=== PATIENT | female | born 1945 | race African-American/Black ===

== ENCOUNTER → 2016-07-29 | Outpatient (CLI) | payer MEDICARE, BC, OTHER | LOC: WI 14:03 | DX: Z12.31 Encounter for screening mammogram for malignant neoplasm of breast (principal) | CPT/HCPCS: 77067; G0202 ==

== ENCOUNTER → 2016-09-07 | Outpatient (CLI) | payer MEDICARE, BC, OTHER ==
--- NOTE | 2016-09-07 13:09 | RADIOLOGY REPORT (SQ) ---
EXAM DESCRIPTION: CT CHEST WITHOUT COMPLETED DATE/TIME: 09/07/2016 12:53 pm REASON FOR STUDY: COPD, COUGH J44.9 CHRONIC OBSTRUCTIVE PULMONARY DISEASE, UNSPECIFIED R05 COUGH COMPARISON: CT chest 09/17/2015, 07/16/2014 TECHNIQUE: CT scan performed of the chest without intravenous contrast. Images reviewed with lung, soft tissue and bone windows. Reconstructed coronal and sagittal MPR images reviewed. All images st ored on PACS. All CT scanners at this facility use dose modulation, iterative reconstruction, and/or weight based d osing when appropriate to reduce radiation dose to as low as reasonably achievable (ALARA). [facility]: Dose Right [facility]: CareDose [facility]: Dose Right [facility]: Teradose 4D [facility]: [employer] RADIATION DOSE: 15.12 mGy. LIMITATIONS: No technical limitations. FINDINGS: LUNGS AND PLEURA: Bandlike scarring or atelectasis along the left major fissure, benign in appearance. This is best shown on sagittal image 52 and axial image 48. No acute infiltrates. No pleural effusion. No pneumothorax. No chest CT evidence of interstitial fibrosis. No definite enlarged airspaces. No worrisome pulmona ry nodules. HILAR AND MEDIASTINAL STRUCTURES: No identified masses or abnormal nodes. No obvious aneurysm. HEART AND VASCULAR STRUCTURES: No aneurysm. No pericardial effusion. Calcified aortic valve. Heavy coronary artery calcification. UPPER ABDOMEN: No significant findings. Limited exam. THYROID AND OTHER SOFT TISSUES: No masses. No adenopathy. BONES: No significant finding. HARDWARE: None in the chest. OTHER: No other significant findings. IMPRESSION: NO SIGNIFICANT FINDING ON NON-CONTRASTED CHEST CT. TECHNICAL DOCUMENTATION: JOB ID: [id number] Quality ID # [id number]: Final reports with documentation of one or more dose reduction techniques (e.g., Au tomated exposure control, adjustment of the mA and/or kV according to patient size, use of iterative reconstruction technique) 2010 [employer]- All Rights Reserved
== END ==
LOC: RAD 12:42
PROVIDERS: ATTEND Internal Medicine
DX: J44.9 Chronic obstructive pulmonary disease, unspecified (principal); R05 Cough
CPT/HCPCS: 71250

== ENCOUNTER → 2016-09-08 | Outpatient (CLI) | payer MEDICARE, BC, OTHER ==
[2016-09-11 12:40] LABS: IMMUNOGLOBULIN E 682 IU/mL (0-100)
== END ==
LOC: OD 16:16
PROVIDERS: ATTEND Allergy & Immunology
DX: J31.0 Chronic rhinitis (principal); J45.40 Moderate persistent asthma, uncomplicated
CPT/HCPCS: 36415; 82785

== ENCOUNTER → 2016-11-25 | Outpatient (CLI) | payer MEDICARE, BC, OTHER ==
--- NOTE | 2016-11-25 16:45 | RADIOLOGY REPORT (SQ) ---
EXAM DESCRIPTION: MRI CERVICAL SPINE WITHOUT COMPLETED DATE/TIME: 11/25/2016 3:19 pm REASON FOR STUDY: CERVICAL SPINE M54.12 RADICULOPATHY, CERVICAL REGION COMPARISON: MRI cervical spine 11/22/2014 TECHNIQUE: Sagittal and Axial imaging includes T1, T2, STIR and gradient echo sequences. LIMITATIONS: None. FINDINGS: ALIGNMENT: Reversal of cervical curvature from C3 through C7, with fusion at the C4-5 and C6-7 disc spaces, and slight retrolisthesis of C5 over C6. This is similar compared to 11/22/2014 VERTEBRAE: Intact. BONE MARROW: Normal. No marrow replacement or reactive changes. DISCS: Spontaneous ankylosis across the C4-5 and C6-7 disc spaces. High-grade disc space loss of hei ght at C5-6 with slight retrolisthesis of C5 over C6. Mild disc space loss of height at C7-T1 and T1 -2. HARDWARE: None in the spine. CORD AND BASE OF BRAIN: Normal in size and signal intensity. SOFT TISSUES: No soft tissue masses. C1-C2: No significant spinal stenosis. C2-C3: No significant spinal stenosis or exit foraminal stenosis. C3-C4: No central stenosis. Mild bilateral foraminal narrowing from facet and uncovertebral hypertro phy. C4-C5: Minimal posterior disc bulging. No central stenosis. No significant foraminal narrowing C5-C6: Slight retrolisthesis of C5 over C6 is present with broad diffuse posterior disc bulging and b filippo spurring. This effaces the ventral thecal sac and abuts the ventral cord without cord flattening or abnormal intrinsic cord signal. Mild central canal narrowing. Moderate right, mild left foramin al stenosis from facet and uncovertebral hypertrophy. C6-C7: No significant spinal stenosis or exit foraminal stenosis. C7-T1: No central stenosis. Mild bilateral foraminal narrowing from facet and uncovertebral hypertro phy UPPER THORACIC: Incompletely imaged. No significant spinal stenosis or exit foraminal stenosis. OTHER: No other significant finding. IMPRESSION: Diffuse degenerative changes without high-grade central or foraminal encroachment. TECHNICAL DOCUMENTATION: JOB ID: [id number] [employer]- All Rights Reserved
== END ==
LOC: RAD 14:32
PROVIDERS: ATTEND Internal Medicine
DX: M54.12 Radiculopathy, cervical region (principal)
CPT/HCPCS: 72141

== ENCOUNTER → 2017-03-17 | Outpatient (CLI) | payer MEDICARE, BC, OTHER ==
--- NOTE | 2017-03-17 17:47 | RADIOLOGY REPORT (SQ) ---
EXAM DESCRIPTION: HAND LEFT 2 VIEWS COMPLETED DATE/TIME: 03/17/2017 5:37 pm REASON FOR STUDY: PAIN IN LEFT HAND M79.642 PAIN IN LEFT HAND COMPARISON: None. EXAM PARAMETERS: NUMBER OF VIEWS: Three views. TECHNIQUE: AP, lateral and oblique radiographic images acquired of the left hand. LIMITATIONS: None. FINDINGS: MINERALIZATION: Normal. BONES: No acute fracture or dislocation. No worrisome bone lesions. Metacarpal osteophytes raising th e question of CPPD. No erosions. JOINTS: No erosions. No gisella-articular osteopenia. No chondrocalcinosis. SOFT TISSUES: No swelling. No calcifications. OTHER: No other significant finding. IMPRESSION: Metacarpal osteophytes raising the question of CPPD. TECHNICAL DOCUMENTATION: JOB ID: [id number] [employer]- All Rights Reserved
== END ==
LOC: OD 16:59
PROVIDERS: ATTEND Internal Medicine
DX: M79.642 Pain in left hand (principal)

== ENCOUNTER → 2017-03-23 | Outpatient (CLI) | payer MEDICARE, BC, OTHER ==
--- NOTE | 2017-03-23 10:32 | RADIOLOGY REPORT (SQ) ---
EXAM DESCRIPTION: CT CHEST WITHOUT COMPLETED DATE/TIME: 03/23/2017 9:59 am REASON FOR STUDY: R04.2 HEMOPTYSIS R04.2 HEMOPTYSIS COMPARISON: 09/07/2016 TECHNIQUE: CT scan performed of the chest without intravenous contrast. Images reviewed with lung, soft tissue and bone windows. Reconstructed coronal and sagittal MPR images reviewed. All images st ored on PACS. All CT scanners at this facility use dose modulation, iterative reconstruction, and/or weight based d osing when appropriate to reduce radiation dose to as low as reasonably achievable (ALARA). [facility]: Dose Right [facility]: CareDose [facility]: Dose Right [facility]: Teradose 4D [facility]: [employer] RADIATION DOSE: CT Rad equipment meets quality standard of care and radiation dose reduction techniq ues were employed. CTDIvol: 14.0 mGy. DLP: 481 mGy-cm. mGy. LIMITATIONS: No technical limitations. FINDINGS: LUNGS AND PLEURA: There is focal airspace disease in the right middle lobe. This is new f rom prior study and surrounds the bronchus. This most likely represents focal pneumonia. Developing ground-glass nodule cannot be excluded but is thought to be less likely. HILAR AND MEDIASTINAL STRUCTURES: There are small stable precarinal lymph nodes. These are nonspecif ic. HEART AND VASCULAR STRUCTURES: No pericardial effusion. Aortic root is slightly prominent size measu red 3.8 cm. This is unchanged. UPPER ABDOMEN: No significant findings. Limited exam. THYROID AND OTHER SOFT TISSUES: No masses. No adenopathy. BONES: No significant finding. HARDWARE: None in the chest. OTHER: No other significant findings. IMPRESSION: Ground-glass opacity in the right middle lobe most consistent with pneumonia. This will need follow up. TECHNICAL DOCUMENTATION: JOB ID: [id number] Quality ID # 436: Final reports with documentation of one or more dose reduction techniques (e.g., Au tomated exposure control, adjustment of the mA and/or kV according to patient size, use of iterative reconstruction technique) 2010 [employer]- All Rights Reserved
== END ==
LOC: RAD 10:00
PROVIDERS: ATTEND Internal Medicine Pulmonary Disease
DX: J18.9 Pneumonia, unspecified organism (principal); R04.2 Hemoptysis
CPT/HCPCS: 71250

== ENCOUNTER → 2017-04-14 | Outpatient (CLI) | payer MEDICARE, BC, OTHER ==
--- NOTE | 2017-04-14 17:29 | RADIOLOGY REPORT (SQ) ---
EXAM DESCRIPTION: CHEST PA/LATERAL COMPLETED DATE/TIME: 04/14/2017 5:09 pm REASON FOR STUDY: PNEUMONIA, UNSPECIFIED ORGANISM COMPARISON: Chest CT scan dated 03/23/2017 and chest x-ray dated September 2005 EXAM PARAMETERS: NUMBER OF VIEWS: two views TECHNIQUE: Digital Frontal and Lateral radiographic views of the chest acquired. RADIATION DOSE: NA LIMITATIONS: none FINDINGS: LUNGS AND PLEURA: No opacities, masses or pneumothorax. No pleural effusion. Oblique line ar density is again identified in the lateral projection most consistent with some thickening of the major fissure. MEDIASTINUM AND HILAR STRUCTURES: No masses or contour abnormalities. HEART AND VASCULAR STRUCTURES: Cardiac silhouette is at the upper limits of normal in size and unchan ged in configuration BONES: No acute findings. HARDWARE: None in the chest. OTHER: No other significant finding. IMPRESSION: No significant interval change. No acute findings. Other findings as noted above TECHNICAL DOCUMENTATION: JOB ID: [id number] [employer]- All Rights Reserved
== END ==
LOC: OD 16:37
PROVIDERS: ATTEND Internal Medicine
DX: J18.9 Pneumonia, unspecified organism (principal)
CPT/HCPCS: 71046

== ENCOUNTER → 2017-08-11 | Outpatient (CLI) | payer MEDICARE, BC, OTHER ==
--- NOTE | 2017-08-11 16:26 | WOMENS IMAGING REPORT ---
EXAM DESCRIPTION: 3D SCREENING MAMMO BILAT COMPLETED DATE/TIME: 08/11/2017 3:52 pm REASON FOR STUDY: SCREENING MAMMO Z12.31 ENCNTR SCREEN MAMMOGRAM FOR MALIGNANT NEOPLASM OF CLOE COMPARISON: 2007- 2016 TECHNIQUE: Standard craniocaudal and mediolateral oblique views of each breast recorded using digita l acquisition and breast tomosynthesis. LIMITATIONS: None. FINDINGS: No masses, calcifications or architectural distortion. No areas of suspicion. Read with the assistance of CAD. .[facility] - R2 [employer] Version 1.3 .[facility] - R2 Cenova Version 1.3 .[facility] - R2 Cenova Version 2.4 .[facility] [place] - R2 Cenova Version 2.4 .REPLACED BY [facility] - R2 Political Science Faculty Member Version 9.2 IMPRESSION: NORMAL MAMMOGRAM. BIRADS 1. BREAST DENSITY: b. There are scattered areas of fibroglandular density. BIRAD: 1 NEGATIVE RECOMMENDATION: ROUTINE SCREENING COMMENT: The patient has been notified of the results by letter per SA requirements. Additional no tification policies are in place for contacting patient with suspicious or incomplete findings. Quality ID #225: The [employer] recommends an annual screening mammogram for women aged 40 years or over. This facility utilizes a reminder system to ensure that all patients receive reminder letters, and/or direct phone calls for appointments. This includes reminders for routine scr eening mammograms, diagnostic mammograms, or other Breast Imaging Interventions when appropriate. Th is patient will be placed in the appropriate reminder system. The [employer] (ACR) has developed recommendations for screening MRI of the breast s in certain patient populations, to be used in conjunction with mammography. Breast MRI surveillanc e may be appropriate for women with more than 20% lifetime risk of developing breast cancer as deter mined by genetic testing, significant family history of the disease, or history of mantle radiation f or Hodgkins Disease. ACR Practice Guidelines 2008. DBT Technology DBT is a type of tomographic mammography. With conventional mammography, overlapping breast tissue ma y make lesions difficult to detect, even with good compression. DBT uses an x-ray tube that rotates a round the breast, taking images at different angles. These images are then combined to create thin sl ices of the breast that the radiologist can view as a 3D reconstruction. The [employer] unit can perform full-field digital mammograms (2D imaging); or DBT (3D imaging); or both, in a combination mode that quickly performs both the mammogram and the tomosynthesis scan while the breast is still compressed. PQRS 6045F: Fluoroscopic imaging is not utilized for breast tomosynthesis. TECHNICAL DOCUMENTATION: FINDING NUMBER: (1) ASSESSMENT: (1) JOB ID: [id number] [employer]- All Rights Reserved Reading location - IP/workstation name: [facility]-REPLACED BY [facility]
== END ==
LOC: WI 14:27
DX: Z12.31 Encounter for screening mammogram for malignant neoplasm of breast (principal)
CPT/HCPCS: 77063; 77067

== ENCOUNTER → 2017-11-10 | Outpatient (CLI) | payer MEDICARE, BC, OTHER ==
--- NOTE | 2017-11-10 17:20 | XCELERA REPORT ---
[address] [address] Lower Extremity Arterial Evaluation Name: HAYDE LAZAR Age: 72 yrs Gender: Female : 1945 Patient Status: Preadmit Patient Location: Study Date: 11/10/2017 01:33 PM Procedure: A color flow and duplex scan of the lower extremity arteries was performed bilaterally with velocity and waveform anaylsis. Ankle brachial indicies performed. Reason For Study: PVD Ordering Physician: ENRRIQUE PHOENIX Performed By: Manjula Camacho Measurements and Calculations Right Left Prox PFA PSV 110.9 47.8 cm/sec Prox SFA PSV 103.5 98.5 cm/sec Mid SFA PSV 74.5 79.5 cm/sec Dist SFA PSV 53.3 77.6 cm/sec Prox Pop A PSV 57.1 62.6 cm/sec Dist ABHISHEK PSV 32.7 54.7 cm/sec Dist CONSTRUCTION TECHNICIAN PSV 50.8 28.2 cm/sec Jorge Alberto Pedis PSV 23.9 47.2 cm/sec Right Side Arterial Evaluation Normal velocity and triphasic waveforms noted from the Common Femoral artery to the Popliteal artery, Biphasic infrageniculate . 0-19% stenosis at the infrageniculate level. Ankle Brachial index is 1.00. Left Side Arterial Evaluation Normal velocity and triphasic waveforms noted from the Common Femoral artery to the Anterior tibial artery, Biphasic Posterior Tibial and Dorsalis Pedis . 0-19% stenosis at the Posterior Tibial and Dorsalis Pedis . Ankle Brachial index is 1.00. Interpretation Summary Mild hemodynamically significant lesions in the bilateral lower extremities, on duplex imaging, at rest. : ENRRIQUE PHOENIX > Neo Rodarte
== END ==
LOC: SP 14:07
PROVIDERS: ATTEND Internal Medicine
DX: I73.9 Peripheral vascular disease, unspecified (principal)
CPT/HCPCS: 93925

== ENCOUNTER 2018-06-23 13:10 | Observation (INO) | payer MEDICARE, BC, OTHER ==
[2018-06-23] MEDS ORDERED: NORMAL SALINE 1000 ML 1,000 ML IV PRN (14:06)
[2018-06-23 14:23] LABS: APPEARANCE,URINE CLEAR; BILIRUBIN,URINE NEGATIVE (NEGATIVE); COLOR,URINE YELLOW; GLUCOSE, URINE NEGATIVE (NEGATIVE); KETONES,URINE NEGATIVE (NEGATIVE); LEUKOCYTE ESTERASE,URINE NEGATIVE (NEGATIVE); NITRITE,URINE NEGATIVE (NEGATIVE); PROTEIN,URINE NEGATIVE (NEGATIVE); URINE SPECIFIC GRAVITY 1.013; UROBILINOGEN,URINE NEGATIVE mg/dL (<2.0)
[2018-06-23 14:54] LABS: HEMATOCRIT 38.7 % (36.0-47.0); MEAN CORPUSCULAR HEMOGLOBIN 32.1 pg (27.0-33.4); MEAN CORPUSCULAR HGB CONC 33.7 g/dL (32.0-36.0); MEAN CORPUSCULAR VOLUME 95 fl (80-97); PLATELET COUNT 199 10^3/uL (150-450); RED BLOOD COUNT 4.07 10^6/uL (3.72-5.28); RED CELL DISTRIBUTION WIDTH 14.8 % (11.5-14.0); WHITE BLOOD COUNT 8.7 10^3/uL (4.0-10.5)
[2018-06-23 15:00] LABS: ARTERIAL BLOOD BASE EXCESS -0.5 mmol/L; ARTERIAL BLOOD FIO2 ROOM AIR; ARTERIAL BLOOD H2CO3 1.14 mmol/L (1.05-1.35); ARTERIAL BLOOD HCO3 23.8 mmol/L (20-24); ARTERIAL BLOOD O2 SATURATION 95.7 % (94-98); ARTERIAL BLOOD PH 7.42 (7.35-7.45); ARTERIAL BLOOD PO2 77.9 mmHg (80-100)
[2018-06-23 15:11] LABS: ALANINE AMINOTRANSFERASE 26 U/L (9-52); ALBUMIN 4.2 g/dL (3.5-5.0); ALKALINE PHOSPHATASE 75 U/L (38-126); ANION GAP 9 (5-19); ASPARTATE AMINO TRANSFERASE 20 U/L (14-36); BILIRUBIN,DIRECT 0.1 mg/dL (0.0-0.4); BILIRUBIN,TOTAL 0.4 mg/dL (0.2-1.3); BLOOD UREA NITROGEN 12 mg/dL (7-20); CARBON DIOXIDE 29 mmol/L (22-30); CHLORIDE 103 mmol/L (98-107); GLUCOSE 102 mg/dL (75-110); SODIUM 140.6 mmol/L (137-145); TOTAL PROTEIN 7.1 g/dL (6.3-8.2)
[2018-06-23 15:28] LABS: FREE T4 (FREE THYROXINE) 1.07 ng/dL (0.78-2.19)
--- NOTE | 2018-06-23 15:28 | RADIOLOGY REPORT (SQ) ---
EXAM DESCRIPTION: CT CHEST WITHOUT COMPLETED DATE/TIME: 06/23/2018 3:21 pm REASON FOR STUDY: SYMPTOMS OF PE COMPARISON: CT chest dated 03/23/2017 chest x-ray dated 04/14/2017 TECHNIQUE: CT scan performed of the chest without intravenous contrast. Images reviewed with lung, soft tissue and bone windows. Reconstructed coronal and sagittal MPR images reviewed. All images st ored on PACS. All CT scanners at this facility use dose modulation, iterative reconstruction, and/or weight based d osing when appropriate to reduce radiation dose to as low as reasonably achievable (ALARA). [facility]: Dose Right [facility]: CareDose [facility]: Dose Right [facility]: Teradose 4D [facility]: [id number] RADIATION DOSE: mGy. LIMITATIONS: No technical limitations. FINDINGS: LUNGS AND PLEURA: No consolidation or effusions. No suspicious pulmonary nodules. There is pleural thickening along the left major fissure. HILAR AND MEDIASTINAL STRUCTURES: No identified masses or abnormal nodes. No obvious aneurysm. HEART AND VASCULAR STRUCTURES: No aneurysm. No pericardial effusion. UPPER ABDOMEN: No significant findings. Limited exam. THYROID AND OTHER SOFT TISSUES: No masses. No adenopathy. BONES: No significant finding. HARDWARE: None in the chest. OTHER: No other significant findings. IMPRESSION: NO SIGNIFICANT FINDING ON NON-CONTRASTED CHEST CT. TECHNICAL DOCUMENTATION: JOB ID: [id number] Quality ID # 436: Final reports with documentation of one or more dose reduction techniques (e.g., Au tomated exposure control, adjustment of the mA and/or kV according to patient size, use of iterative reconstruction technique) 2010 [employer]- All Rights Reserved Reading location - IP/workstation name: [email or web address]
[2018-06-23 15:42] LABS: THYROID STIMULATING HORMONE 5.96 uIU/mL (0.47-4.68)
[2018-06-23] MEDS ORDERED: ALBUTEROL SULFATE 0.083% NEB 2.5 MG/3 ML AMPUL NEB PRN (17:25)
[2018-06-23] MEDS ORDERED: HYDROCODONE/ACETAMINOPHEN 10-325 MG TABLET PO PRN (17:25)
[2018-06-23] MEDS ORDERED: (PENDING PHARMACY ID) (Potassium Chloride [Klor-Con M20] 20 MEQ) PO SCH (17:30)
[2018-06-23] MEDS ORDERED: (PENDING PHARMACY ID) (Nifedipine [Nifedipine Er] 90 MG) PO SCH (17:30)
[2018-06-23] MEDS ORDERED: (PENDING PHARMACY ID) (Atenolol [Tenormin 100 Mg Tablet] 100 MG) PO SCH (17:30)
[2018-06-23] MEDS ORDERED: DICLOFENAC SODIUM PO SCH (18:00)
[2018-06-23] MEDS ORDERED: (PENDING PHARMACY ID) (Valsartan/Hydrochlorothiazide [Diovan Hct 160-12.5 Mg Tab] 1 TAB) PO SCH (18:00)
[2018-06-23] MEDS ORDERED: AZITHROMYCIN 500 MG in DEXTROSE 5%-WATER 250 ML IV SCH (18:00)
[2018-06-23] MEDS ORDERED: [UNRECOGNIZED DRUG - OTHER] PO SCH (18:00)
[2018-06-23] MEDS ORDERED: MISOPROSTOL PO SCH (18:00)
[2018-06-23] MEDS: FOLIC ACID 1 MG TABLET PO SCH (19:01)
[2018-06-23] MEDS: LEVOTHYROXINE SODIUM 0.1 MG TABLET PO SCH (19:01)
[2018-06-23] MEDS: NIFEDIPINE 30 MG TAB.ER.24 PO SCH (19:01)
[2018-06-23] MEDS: POTASSIUM CHLORIDE 10 MEQ CAPSULE.ER PO SCH (19:01)
[2018-06-23] MEDS: ATENOLOL 50 MG TABLET PO SCH (19:02)
[2018-06-23] MEDS: MONTELUKAST SODIUM 5 MG TAB.CHEW PO SCH (19:05)
[2018-06-23] MEDS: DICLOFENAC SODIUM 50 MG TABLET.DR PO SCH (19:05)
[2018-06-23] MEDS: CLONIDINE HCL 0.2 MG TABLET PO SCH (21:59)
[2018-06-23] MEDS: VALSARTAN 160 MG TABLET PO SCH (21:59)
[2018-06-23] MEDS: HYDROCHLOROTHIAZIDE 12.5 MG TABLET PO SCH (21:59)
[2018-06-23] MEDS ORDERED: CLORAZEPATE DIPOTASSIUM 7.5 MG TABLET PO SCH (22:00)
[2018-06-23] MEDS ORDERED: PRAMIPEXOLE DI-HCL 0.5 MG TABLET PO SCH (22:00)
--- NOTE | 2018-06-23 23:06 | EKG REPORT ---
SEVERITY:- ABNORMAL ECG - SINUS RHYTHM FIRST DEGREE AV BLOCK LVH BY VOLTAGE BORDERLINE T ABNORMALITIES, INFERIOR LEADS : Confirmed by: Migel Dean 23-Jun-2018 23:06:11
[2018-06-24] MEDS ORDERED: DIPHENHYDRAMINE HCL 25 MG CAPSULE PO PRN (02:07)
[2018-06-24] MEDS ORDERED: DIPHENHYDRAMINE HCL 25 MG CAPSULE ONE (02:09)
[2018-06-24] MEDS: IPRATROPIUM/ALBUTEROL 0.5-2.5 MG/3 ML AMPUL NEB PRN ×2 (02:30→09:10)
[2018-06-24] MEDS: LEVOTHYROXINE SODIUM 0.1 MG TABLET PO SCH (06:17)
[2018-06-24] MEDS: CLONIDINE HCL 0.2 MG TABLET PO SCH (06:17)
[2018-06-24] MEDS: DICLOFENAC SODIUM 50 MG TABLET.DR PO SCH (09:28)
[2018-06-24] MEDS: ATENOLOL 50 MG TABLET PO SCH (09:29)
[2018-06-24] MEDS: NIFEDIPINE 30 MG TAB.ER.24 PO SCH (09:29)
[2018-06-24] MEDS: MONTELUKAST SODIUM 5 MG TAB.CHEW PO SCH (09:29)
[2018-06-24] MEDS: POTASSIUM CHLORIDE 10 MEQ CAPSULE.ER PO SCH (09:29)
[2018-06-24] MEDS: FOLIC ACID 1 MG TABLET PO SCH (09:30)
[2018-06-24] MEDS: VALSARTAN 160 MG TABLET PO SCH (09:30)
[2018-06-24] MEDS: HYDROCHLOROTHIAZIDE 12.5 MG TABLET PO SCH (09:31)
[2018-06-24] MEDS ORDERED: MISOPROSTOL 0.2 MG TABLET PO SCH (10:00)
[2018-06-24 15:18] VITALS: BP 161/92
--- NOTE | 2018-06-24 17:10 | PDOC H&P ---
History of Present Illness Admission Date/PCP: 06/23/18 13:10 ENRRIQUE PHOENIX MD History of Present Illness: HAYDE LAZAR is a 73 year old female,She has history of severe allergy with severe persistent asthma she came to the office for evaluation of malaise, cough, wheezing. She was admitted directly from the office into the hospital for evaluation.She has IgE mediated asthma she was referred previously to outpatient physical sciences instructor for anti-IgE therapy,She did not tolerate omalizumab therapy CT chest without contrast was obtained, there was no acute pathology demonstrated on the CT scan Past Medical History Cardiac Medical History: Reports: Hyperlipidema, Hypertension Pulmonary Medical History: Reports: Asthma, Pneumonia Endocrine Medical History: Reports: Hypothyroidism Musculoskeltal Medical History: Reports: Arthritis Psychiatric Medical History: Reports: Depression Hematology: Reports: Anemia - hx of Past Surgical History Past Surgical History: Reports: Orthopedic Surgery - knee surgery Social History Smoking Status: Former Smoker Frequency of Alcohol Use: None Hx Recreational Drug Use: No Drugs: None Hx Prescription Drug Abuse: No Family History Family History: Reviewed & Not Pertinent Parental Family History Reviewed: Yes Children Family History Reviewed: Yes Sibling(s) Family History Reviewed.: Yes Medication/Allergy Home Medications: Albuterol Sulfate [Ventolin 0.083% Neb 2.5 mg/3 mL Ampul] 1 vial NEB Q6HP PRN 06/23/18 Atenolol [Tenormin 100 mg Tablet] 100 mg PO DAILY 06/23/18 Clonidine HCl [Catapres 0.2 mg Tablet] 0.2 mg PO TID 06/23/18 Clorazepate Dipotassium [Tranxene 7.5 mg Tablet] 7.5 mg PO QHS 06/23/18 Diclofenac Sodium/Misoprostol [Diclofenac-Misoprost 50-0.2 Tb] 1 tab PO BID 06/23/18 Fluconazole [Diflucan] 150 mg PO CLARK@1000 06/23/18 Folic Acid [Folvite 1 mg Tablet] 1 mg PO DAILY 06/23/18 Hydrocodone/Acetaminophen [[place] 10-325 mg Tablet] 1 tab PO Q6HP PRN 06/23/18 Levothyroxine Sodium [Synthroid 0.1 mg Tablet] 0.1 mg PO Q6AM 06/23/18 Montelukast Sodium [Singulair 5 mg Chewable Tab] 5 mg PO BID 06/23/18 Nifedipine [Nifedipine ER] 90 mg PO DAILY 06/23/18 Potassium Chloride [Klor-Con M20] 20 meq PO DAILY 06/23/18 Pramipexole Di-HCl [Mirapex 0.5 mg Tablet] 0.5 mg PO QHS 06/23/18 Valsartan/Hydrochlorothiazide [Diovan Hct 160-12.5 mg Tab] 1 tab PO BID 06/23/18 Azithromycin [Zithromax] 500 mg PO DAILY #10 tablet 06/24/18 Allergies/Adverse Reactions: aminophylline [Aminophylline] Allergy (Severe, Verified 01/08/15 11:19) Hives amoxicillin [Amoxicillin] Allergy (Severe, Verified 01/08/15 11:19) Hives ampicillin [Ampicillin] Allergy (Severe, Verified 01/08/15 11:19) Hives celecoxib [From Celebrex] Allergy (Severe, Verified 01/08/15 11:19) Hives egg [Egg] Allergy (Severe, Verified 01/08/15 11:19) n and v formoterol [From Bevespi Aerosphere] Allergy (Severe, Verified 03/18/17 15:47) Dizziness glycopyrrolate [From Bevespi Aerosphere] Allergy (Severe, Verified 03/18/17 15:47) Dizziness latex [Latex] Allergy (Severe, Verified 01/08/15 11:19) hives, burning meclizine HCl [From Antivert] Allergy (Severe, Verified 01/08/15 11:19) swelling adhesive tape [Adhesive Tape] Allergy (Intermediate, Verified 01/16/15 07:56) RASH Review of Systems Constitutional: PRESENT: fatigue Eyes: ABSENT: visual disturbances Ears: ABSENT: hearing changes Cardiovascular: ABSENT: chest pain, dyspnea on exertion, edema, orthropnea, palpitations Respiratory: PRESENT: cough Gastrointestinal: ABSENT: abdominal pain, constipation, diarrhea, hematemesis, hematochezia, nausea, vomiting Genitourinary: ABSENT: dysuria, hematuria Musculoskeletal: ABSENT: joint swelling Integumentary: ABSENT: rash, wounds Neurological: ABSENT: abnormal gait, abnormal speech, confusion, dizziness, focal weakness, syncope Psychiatric: ABSENT: anxiety, depression, homidical ideation, suicidal ideation Endocrine: ABSENT: cold intolerance, heat intolerance, menstrual abnormalities, polydipsia, polyuria Hematologic/Lymphatic: ABSENT: easy bleeding, easy bruising, lymphadenopathy Physical Exam Vital Signs: Temp Pulse Resp BP Pulse Ox 98.2 F 88 16 161/92 H 94 06/24/18 15:15 06/24/18 15:15 06/24/18 15:15 06/24/18 15:15 06/24/18 15:15 Intake & Output 06/23/18 06/24/18 06/25/18 06:59 06:59 06:59 Intake Total 250 Output Total 300 Balance -50 Weight 99.2 kg General appearance: PRESENT: no acute distress, well-developed, well-nourished Head exam: PRESENT: atraumatic, normocephalic Eye exam: PRESENT: conjunctiva pink, EOMI, PERRLA Ear exam: PRESENT: normal external ear exam Mouth exam: PRESENT: moist, tongue midline Neck exam: PRESENT: full ROM Respiratory exam: PRESENT: rhonchi Cardiovascular exam: PRESENT: RRR, +S1, +S2 Pulses: PRESENT: normal dorsalis pedis pul, +2 pedal pulses bilateral Vascular exam: PRESENT: normal capillary refill GI/Abdominal exam: PRESENT: normal bowel sounds, soft Rectal exam: PRESENT: deferred Neurological exam: PRESENT: alert Psychiatric exam: PRESENT: appropriate affect, normal mood Skin exam: PRESENT: dry, intact, warm Results Laboratory Results: 06/23/18 14:38 06/23/18 14:38 Impressions: Chest CT 06/23/18 00:00 IMPRESSION: NO SIGNIFICANT FINDING ON NON-CONTRASTED CHEST CT. Assessment & Plan - Diagnosis (1) Severe persistent allergic asthma Is this a current diagnosis for this admission?: Yes Plan: She has severe persistent allergic asthma not presently in status asthmaticus she has no wheezing there is no pneumonia she was brought in for observation. She was treated outpatient with p.o. antibiotic without improvement she came to the office very early in the morning not feeling well
--- NOTE | 2018-06-24 17:18 | PDOC DISCHARGE SUMMARY ---
General - Admit/Disc Date/PCP Admission Date/Primary Care Provider: 06/23/18 13:10 ENRRIQUE PHOENIX MD Discharge Date: 06/24/18 - Discharge Diagnosis (1) Severe persistent allergic asthma Is this a current diagnosis for this admission?: Yes (2) Essential (primary) hypertension Is this a current diagnosis for this admission?: Yes - Additional Information Discharge Diet: As Tolerated Discharge Activity: Activity As Tolerated Prescriptions: Azithromycin [Zithromax] 500 mg PO DAILY #10 tablet Home Medications: Albuterol Sulfate [Ventolin 0.083% Neb 2.5 mg/3 mL Ampul] 1 vial NEB Q6HP PRN 06/23/18 Atenolol [Tenormin 100 mg Tablet] 100 mg PO DAILY 06/23/18 Clonidine HCl [Catapres 0.2 mg Tablet] 0.2 mg PO TID 06/23/18 Clorazepate Dipotassium [Tranxene 7.5 mg Tablet] 7.5 mg PO QHS 06/23/18 Diclofenac Sodium/Misoprostol [Diclofenac-Misoprost 50-0.2 Tb] 1 tab PO BID 06/23/18 Fluconazole [Diflucan] 150 mg PO CLARK@1000 06/23/18 Folic Acid [Folvite 1 mg Tablet] 1 mg PO DAILY 06/23/18 Hydrocodone/Acetaminophen [[place] 10-325 mg Tablet] 1 tab PO Q6HP PRN 06/23/18 Levothyroxine Sodium [Synthroid 0.1 mg Tablet] 0.1 mg PO Q6AM 06/23/18 Montelukast Sodium [Singulair 5 mg Chewable Tab] 5 mg PO BID 06/23/18 Nifedipine [Nifedipine ER] 90 mg PO DAILY 06/23/18 Potassium Chloride [Klor-Con M20] 20 meq PO DAILY 06/23/18 Pramipexole Di-HCl [Mirapex 0.5 mg Tablet] 0.5 mg PO QHS 06/23/18 Valsartan/Hydrochlorothiazide [Diovan Hct 160-12.5 mg Tab] 1 tab PO BID 06/23/18 Azithromycin [Zithromax] 500 mg PO DAILY #10 tablet 06/24/18 History of Present Illness History of Present Illness: HAYDE LAZAR is a 73 year old female,She has history of severe allergy with severe persistent asthma she came to the office for evaluation of malaise, cough, wheezing. She was admitted directly from the office into the hospital for evaluation.She has IgE mediated asthma she was referred previously to outpatient game trapper for anti-IgE therapy,She did not tolerate omalizumab therapy CT chest without contrast was obtained, there was no acute pathology demonstrated on the CT scan Hospital Course Hospital Course: Patient was admitted for the management of severe persistent allergic asthma, she was admitted for observation and evaluation of respiratory symptoms, she was treated with intravenous azithromycin. She has IgE mediated asthma she will need anti-IgE therapy, she did not tolerate omalizumab Physical Exam Vital Signs: Temp Pulse Resp BP Pulse Ox 98.2 F 88 16 161/92 H 94 06/24/18 15:15 06/24/18 15:15 06/24/18 15:15 06/24/18 15:15 06/24/18 15:15 Intake & Output 06/23/18 06/24/18 06/25/18 06:59 06:59 06:59 Intake Total 250 Output Total 300 Balance -50 Weight 99.2 kg General appearance: PRESENT: no acute distress Eye exam: PRESENT: PERRLA Respiratory exam: PRESENT: clear to auscultation ankita Cardiovascular exam: PRESENT: +S1, +S2 GI/Abdominal exam: PRESENT: soft Neurological exam: PRESENT: alert Results Laboratory Results: 06/23/18 14:38 06/23/18 14:38 Impressions: Chest CT 06/23/18 00:00 IMPRESSION: NO SIGNIFICANT FINDING ON NON-CONTRASTED CHEST CT. Qualifiers - * PATIENT BEING DISCHARGED WITH ANY OF THE FOLLOWING DIAGNOSIS: No
[2018-06-25] MEDS ORDERED: FLUCONAZOLE 100 MG TABLET PO SCH (10:00)
[2018-06-25] MEDS ORDERED: (PENDING PHARMACY ID) (Fluconazole [Diflucan] 150 MG) PO SCH (10:00)
== END 2018-06-24 15:44 | disposition home or self-care (01) ==
LOC: 4S 13:10 → INTOOBSV 13:10
PROVIDERS: ADMIT Internal Medicine; ATTEND Internal Medicine
DX: J45.50 Severe persistent asthma, uncomplicated (principal); I10 Essential (primary) hypertension; E03.9 Hypothyroidism, unspecified; R53.81 Other malaise; Z79.899 Other long term (current) drug therapy; Z87.891 Personal history of nicotine dependence
CPT/HCPCS: 36415; 87040; 84439; 82803; 84443; 85027; 80076; 80048; 81001; 71250; 93005; 93010; 36600; 94640 ×2; G0378 ×2; G0379; A9270 ×22; J7060; J7030; J0456; J3490; J7620

== ENCOUNTER → 2018-08-16 | Outpatient (CLI) | payer MEDICARE, BC, OTHER ==
--- NOTE | 2018-08-16 14:25 | WOMENS IMAGING REPORT ---
EXAM DESCRIPTION: 3D SCREENING MAMMO BILAT COMPLETED DATE/TIME: 08/16/2018 1:25 pm REASON FOR STUDY: Z12.31 ROUTINE 3D BILATERAL SCREENING Z12.31 ENCNTR SCREEN MAMMOGRAM FOR MALIGNAN T NEOPLASM OF COLE COMPARISON: Multiple since 2007 EXAM PARAMETERS: Views: Standard craniocaudal and mediolateral oblique views of each breast recorded using digital acquisition and breast tomosynthesis. Read with the assistance of CAD. .FORMERLY [facility] - [employer] Version 9.2 LIMITATIONS: None. FINDINGS: No suspicious masses, suspicious calcifications or architectural distortion. No areas of c oncern. IMPRESSION: Assessment: Negative MAMMOGRAM. BIRADS 1. BREAST DENSITY: a. The breasts are almost entirely fatty. BIRAD: 1 NEGATIVE RECOMMENDATION: ROUTINE SCREENING COMMENT: The patient has been notified of the results by letter per SA requirements. Additional no tification policies are in place for contacting patient with suspicious or incomplete findings. Quality ID #225: The [employer] recommends an annual screening mammogram for women aged 40 years or over. This facility utilizes a reminder system to ensure that all patients receive reminder letters, and/or direct phone calls for appointments. This includes reminders for routine scr eening mammograms, diagnostic mammograms, or other Breast Imaging Interventions when appropriate. Th is patient will be placed in the appropriate reminder system. TECHNICAL DOCUMENTATION: FINDING NUMBER: (1) ASSESSMENT: (1) JOB ID: [id number] 2015 [employer]- All Rights Reserved Reading location - IP/workstation name: [email or web address]
== END ==
LOC: WI 13:04
PROVIDERS: ATTEND Specialist
DX: Z12.31 Encounter for screening mammogram for malignant neoplasm of breast (principal)
CPT/HCPCS: 77063; 77067

== ENCOUNTER → 2018-10-09 | Outpatient (CLI) | payer MEDICARE, BC, OTHER ==
--- NOTE | 2018-10-09 17:22 | RADIOLOGY REPORT (SQ) ---
EXAM DESCRIPTION: CHEST PA/LATERAL COMPLETED DATE/TIME: 10/09/2018 5:00 pm REASON FOR STUDY: PERSISTENT ASTHMA WITHOUT COMPLICATION, UNSPECIFIED ASTHMA SEVERITY COMPARISON: 09/17/2015 TECHNIQUE: Frontal and lateral radiographic views of the chest acquired. NUMBER OF VIEWS: Two view. LIMITATIONS: None. FINDINGS: LUNGS AND PLEURA: No pneumothorax. Minimal left basilar scarring. No consolidation or pl eural effusion. MEDIASTINUM AND HILAR STRUCTURES: Stable. HEART AND VASCULAR STRUCTURES: Stable. BONES: No acute findings. HARDWARE: None in the chest. OTHER: No other significant finding. IMPRESSION: NO ACUTE FINDINGS. TECHNICAL DOCUMENTATION: JOB ID: [id number] 2010 [employer]- All Rights Reserved Reading location - IP/workstation name: [employer]
[2018-10-09 17:25] LABS: ABSOLUTE BASOPHILS # (AUTO) 0.1 10^3/uL (0.0-0.2); ABSOLUTE EOSINOPHILS # (AUTO) 0.3 10^3/uL (0.0-0.6); ABSOLUTE LYMPHOCYTES (AUTO) 3.9 10^3/uL (0.5-4.7); ABSOLUTE MONOCYTES (AUTO) 0.4 10^3/uL (0.1-1.4); ABSOLUTE NEUT (AUTO) 3.8 10^3/uL (1.7-8.2); BASOPHILS % (AUTO) 0.7 % (0-2); EOSINOPHILS % (AUTO) 3.8 % (0-6); HEMATOCRIT 38.8 % (36.0-47.0); HEMOGLOBIN 12.7 g/dL (12.0-15.5); LYMPHOCYTES % (AUTO) 46.4 % (13-45); MEAN CORPUSCULAR HGB CONC 32.7 g/dL (32.0-36.0); MEAN CORPUSCULAR VOLUME 95 fl (80-97); MONOCYTES % (AUTO) 4.2 % (3-13); PLATELET COUNT 228 10^3/uL (150-450); RED BLOOD COUNT 4.09 10^6/uL (3.72-5.28); RED CELL DISTRIBUTION WIDTH 14.4 % (11.5-14.0); SEGMENTED NEUTROPHILS % (AUTO) 44.9 % (42-78); TOTAL CELLS COUNTED % (AUTO) 100 %; WHITE BLOOD COUNT 8.4 10^3/uL (4.0-10.5)
[2018-10-09 17:52] LABS: BLOOD UREA NITROGEN 29 mg/dL (7-20); CALCIUM 9.5 mg/dL (8.4-10.2); CARBON DIOXIDE 28 mmol/L (22-30); CHLORIDE 102 mmol/L (98-107); GLUCOSE 99 mg/dL (75-110); POTASSIUM 4.1 mmol/L (3.6-5.0); SODIUM 139.4 mmol/L (137-145)
[2018-10-09 17:53] LABS: ANION GAP 9 (5-19)
== END ==
LOC: OD 16:22
PROVIDERS: ATTEND Internal Medicine Pulmonary Disease
DX: J45.909 Unspecified asthma, uncomplicated (principal); E66.9 Obesity, unspecified
CPT/HCPCS: 36415; 71046; 80048; 82785; 83735; 85025

== ENCOUNTER → 2018-10-27 | Outpatient (CLI) | payer MEDICARE, BC, OTHER ==
--- NOTE | 2018-10-27 14:29 | WOMENS IMAGING REPORT ---
EXAM DESCRIPTION: RETROPERITONEAL U/S COMPLETED DATE/TIME: 10/27/2018 2:12 pm REASON FOR STUDY: (R94.4)ABNORMAL RESULTS OF KIDNEY FUNCTION STUDIES R94.4 ABNORMAL RESULTS OF KIDN EY FUNCTION STUDIES COMPARISON: None. TECHNIQUE: Dynamic and static grayscale images acquired of the kidneys and bladder and recorded on P ACS. Additional selected color Doppler and spectral images recorded. LIMITATIONS: None. FINDINGS: RIGHT KIDNEY: The right kidney measures 10.8 cm in length. Normal echogenicity. No so lid or suspicious masses. No hydronephrosis. No calcifications. LEFT KIDNEY: The left kidney measures 11.6 cm in length. Normal echogenicity. No solid or suspic ious masses. No hydronephrosis. No calcifications. BLADDER: No masses. OTHER FINDINGS: Incidental note is made of gallstones. IMPRESSION: NORMAL RENAL AND BLADDER ULTRASOUND. TECHNICAL DOCUMENTATION: JOB ID: [id number] [employer]- All Rights Reserved Reading location - IP/workstation name: [email or web address]
== END ==
LOC: WI 14:04
PROVIDERS: ATTEND Internal Medicine
DX: R94.4 Abnormal results of kidney function studies (principal)
CPT/HCPCS: 76770

== ENCOUNTER → 2018-10-27 | Outpatient (CLI) | payer MEDICARE, BC, OTHER ==
--- NOTE | 2018-10-27 14:45 | RADIOLOGY REPORT (SQ) ---
EXAM DESCRIPTION: SHOULDER BILAT 2 OR MORE VIEWS COMPLETED DATE/TIME: 10/27/2018 2:34 pm REASON FOR STUDY: TAYLOR SHOULDER PAIN M25.511 PAIN IN RIGHT SHOULDER COMPARISON: None. NUMBER OF VIEWS: Three views. TECHNIQUE: Internal rotation, external rotation, and Y view images acquired of the right and left sh oulder. LIMITATIONS: None. FINDINGS: MINERALIZATION: Normal. BONES: No acute fracture. No worrisome bone lesions. No significant osteophytes. GLENOHUMERAL JOINT: Asymmetric degenerative changes in the right shoulder with joint space narrowing and osteophytic spurring. ACROMIOCLAVICULAR JOINT: No large osteophytes. SOFT TISSUES: No calcifications. VISUALIZED RIBS, SPINE, AND LUNG: No other significant finding. OTHER: No other significant finding. IMPRESSION: Asymmetric degenerative changes in the right glenohumeral joint. No acute fracture or d islocation. TECHNICAL DOCUMENTATION: JOB ID: [id number] [employer]- All Rights Reserved Reading location - IP/workstation name: [email or web address]
== END ==
LOC: OD 14:11
PROVIDERS: ATTEND Internal Medicine
DX: M25.511 Pain in right shoulder (principal)

== ENCOUNTER → 2019-02-08 | Outpatient (CLI) | payer MEDICARE, BC, OTHER ==
--- NOTE | 2019-02-08 16:15 | RADIOLOGY REPORT (SQ) ---
EXAM DESCRIPTION: SHOULDER LEFT 2 OR MORE VIEWS COMPLETED DATE/TIME: 02/08/2019 4:05 pm REASON FOR STUDY: M19.012 PRIMARY OSTEOARTHRITIS, LEFT SHOULDER M19.012 PRIMARY OSTEOARTHRITIS, LEF T SHOULDER COMPARISON: None. NUMBER OF VIEWS: Three view. TECHNIQUE: Internal rotation, external rotation, and Y view images acquired of the left shoulder. LIMITATIONS: None. FINDINGS: MINERALIZATION: Normal. BONES: No acute fracture. No worrisome bone lesions. GLENOHUMERAL JOINT: Moderate arthropathy. ACROMIOCLAVICULAR JOINT: Moderate arthropathy. SOFT TISSUES: No calcifications. VISUALIZED RIBS, SPINE, AND LUNG: No other significant finding. OTHER: No other significant finding. IMPRESSION: AC and glenohumeral joint arthropathy. TECHNICAL DOCUMENTATION: JOB ID: [id number] [employer]- All Rights Reserved Reading location - IP/workstation name: [email or web address]
== END ==
LOC: RAD 15:46
PROVIDERS: ATTEND Internal Medicine Rheumatology
DX: M19.012 Primary osteoarthritis, left shoulder (principal)

== ENCOUNTER → 2019-12-06 | Outpatient (CLI) | payer MEDICARE, BC, OTHER ==
--- NOTE | 2019-12-06 17:05 | RADIOLOGY REPORT (SQ) ---
EXAM DESCRIPTION: VENOUS UNILATERAL UPPER IMAGES COMPLETED DATE/TIME: 12/06/2019 4:55 pm REASON FOR STUDY: LUE SWELLING R22.32 LOCALIZED SWELLING, MASS AND LUMP, LEFT UPPER LIMB J32.9 CHR ONIC SINUSITIS, UNSPECIFIED COMPARISON: None. TECHNIQUE: Dynamic and static tapia scale and color images acquired of the left arm venous system. Se lected spectral images acquired with additional compression and augmentation maneuvers. The contralat eral subclavian vein and internal jugular vein were also imaged. Images stored on PACS. LIMITATIONS: None. FINDINGS: INTERNAL JUGULAR VEIN: Normal phasicity, compression, augmentation. No visualized echogeni c material on tapia scale. No defects on color images. Comparison opposite side normal. SUBCLAVIAN VEIN: Normal compression, augmentation. No visualized echogenic material on tapia scale. No defects on color images. AXILLARY VEIN: Normal compression, augmentation. No visualized echogenic material on tapia scale. No d efects on color images. BRACHIAL VEIN: Normal compression, augmentation. No visualized echogenic material on tapia scale. No d efects on color images. BASILIC VEIN: Normal compression, augmentation. No visualized echogenic material on tapia scale. No de fects on color images. CEPHALIC VEIN: Normal compression, augmentation. No visualized echogenic material on tapia scale. No d efects on color images. OTHER: No other significant finding. CONTRALATERAL SUBCLAVIAN VEIN AND INTERNAL JUGULAR VEIN: Normal phasicity, compression and augmentation. No visualized echogenic material on tapia scale. No de fects on color images. IMPRESSION: NO EVIDENCE DVT OR SVT IN THE LEFT ARM. TECHNICAL DOCUMENTATION: JOB ID: [id number] 2010 [employer]- All Rights Reserved Reading location - IP/workstation name: [email or web address]
== END ==
LOC: SP 13:58
PROVIDERS: ATTEND Internal Medicine
DX: R22.32 Localized swelling, mass and lump, left upper limb (principal); J32.9 Chronic sinusitis, unspecified
CPT/HCPCS: 70486; 93971

== ENCOUNTER → 2020-01-17 | Outpatient (CLI) | payer MEDICARE, BC, OTHER ==
--- NOTE | 2020-01-17 15:12 | RADIOLOGY REPORT (SQ) ---
EXAM DESCRIPTION: CHEST PA/LATERAL IMAGES COMPLETED DATE/TIME: 01/17/2020 2:32 pm REASON FOR STUDY: COUGH COMPARISON: 10/09/2018 EXAM PARAMETERS: NUMBER OF VIEWS: two views TECHNIQUE: Digital Frontal and Lateral radiographic views of the chest acquired. RADIATION DOSE: NA LIMITATIONS: none FINDINGS: LUNGS AND PLEURA: No opacities, masses or pneumothorax. No pleural effusion. MEDIASTINUM AND HILAR STRUCTURES: No masses or contour abnormalities. HEART AND VASCULAR STRUCTURES: Heart normal size. No evidence for failure. BONES: No acute findings. HARDWARE: None in the chest. OTHER: No other significant finding. IMPRESSION: NO SIGNIFICANT RADIOGRAPHIC FINDING IN THE CHEST. TECHNICAL DOCUMENTATION: JOB ID: [id number] 2010 [employer]- All Rights Reserved Reading location - IP/workstation name: [email or web address]
--- NOTE | 2020-01-17 15:13 | RADIOLOGY REPORT (SQ) ---
EXAM DESCRIPTION: PARANASAL SINUSES IMAGES COMPLETED DATE/TIME: 01/17/2020 2:32 pm REASON FOR STUDY: COUGH R05 COUGH COMPARISON: None. NUMBER OF VIEWS: Four views. TECHNIQUE: Images of the paranasal sinuses acquired. LIMITATIONS: None. FINDINGS: ORBITS: No fracture. No foreign body. SINUSES: No mucosal thickening. No air fluid levels. FACIAL BONES: No fracture. OTHER: No other significant finding. IMPRESSION: NO FOREIGN BODY OR FRACTURE. NO PLAIN RADIOGRAPHIC EVIDENCE FOR SINUS DISEASE. TECHNICAL DOCUMENTATION: JOB ID: [id number] 2010 [employer]- All Rights Reserved Reading location - IP/workstation name: [email or web address]
== END ==
LOC: OD 14:01
PROVIDERS: ATTEND Internal Medicine
DX: R05 Cough (principal)
CPT/HCPCS: 70220; 71046